=== PATIENT | female | born 1960 | race Caucasian/White ===

== ENCOUNTER 2016-09-29 14:20 | Emergency (ER) | payer OTHER ==
[~2016-09-29] VITALS: Ht 172.7 cm; Wt 85.0 kg
[2016-09-29 18:02] VITALS: BP 184/106
== END 2016-09-29 18:03 | disposition home or self-care (01) ==
LOC: EME 14:20
DX: H57.13 Ocular pain, bilateral (principal); R20.8 Other disturbances of skin sensation; F17.200 Nicotine dependence, unspecified, uncomplicated
CPT/HCPCS: 99281; 99283